=== PATIENT | male | born 1990 | race Two or more races ===

== ENCOUNTER → 2022-08-09 | Outpatient (REF) | payer OTHER ==
[2022-08-09 14:16] LABS: APPEARANCE, URINE MANUAL CLEAR (CLEAR)
[2022-08-09 14:17] LABS: BILIRUBIN, URINE MANUAL NEGATIVE (NEGATIVE); BLOOD URINE MANUAL NEGATIVE (NEGATIVE); COLOR, URINE MANUAL YELLOW (YELLOW); GLUCOSE, URINE (UA) MANUAL NEGATIVE (NEGATIVE); KETONE, URINE MANUAL NEGATIVE (NEGATIVE); LEUKOCYTE ESTERASE, URINE MAN NEGATIVE (NEGATIVE); NITRITE, URINE MANUAL NEGATIVE (NEGATIVE); PROTEIN, URINE MANUAL NEGATIVE (NEGATIVE); UROBILINOGEN, URINE MANUAL NORMAL (NORMAL)
== END ==
LOC: M SMT 13:01
PROVIDERS: ATTEND Urology
DX: N48.29 Other inflammatory disorders of penis (principal)